=== PATIENT | male | born 1990 | race Caucasian/White ===

== ENCOUNTER 2017-09-10 22:18 | Emergency (ER) | payer OTHER ==
[2017-09-10 22:31] VITALS: BP 150/93; PULSE 59; RESP 18; TEMP 97.9; O2SAT 97
[2017-09-10] MEDS ORDERED: OXYCODONE/APAP 5/325 TAB PO ONE (22:57)
--- NOTE | 2017-09-10 22:57 | EDPHY ---
General - History Smoking Status: Never smoked Time Seen by Provider: 09/10/17 22:29 Narrative: PHYSICIAN DOCUMENTATION: The patient was evaluated and managed by the Physician Analog Device Designer. My co- signature indicates that I have reviewed this chart and I agree with the findings and plan of care as documented. I am the secondary supervising physician. (Patria Garcia) CHIEF COMPLAINT: Crush injury, hand pain, arm pain, shoulder pain HISTORY OF PRESENT ILLNESS: Patient Complains of right arm pain after injury. While at work, he reports his right arm being struck by a backhoe bucket. This happened within 2 hours of arrival to ED. He reports that the bucket "pinned my arm for half a second." He complains of moderate right shoulder pain, mild right forearm pain, moderate right hand pain. Some tingling. No numbness. No weakness. All areas are worse with movement and palpation. Minimal improvement with rest. No puncture wounds, but he does have a small abrasion to the back of his forearm. He is right hand dominant. No head strike or any injury elsewhere. No other associated complaints. REVIEW OF SYSTEMS: Ten systems reviewed and are negative unless otherwise noted in the HPI PCP: None SPECIALISTS: None PAST MEDICAL HISTORY: Denies any medical history PAST SURGICAL HISTORY: Denies any surgical history FAMILY HISTORY: non-contributory EXAMINATION General Appearance: Alert, no distress Head: normocephalic, atraumatic Eyes: Pupils equal and round, no conjunctival pallor or injection Neck: Normal inspection, supple, non-tender Respiratory: Lungs are clear to auscultation. No wheezing rhonchi or crackles Cardiovascular: Regular rate and rhythm. No murmur. Symmetric radial pulses 2 +. Excellent cap refill in the right hand. Back: non-tender, no bony abnormalities. No crepitus, step-off or deformity. Neurological: A&O, nonfocal, normal gait. Sensory is symmetric to the back of both hands, palmar surfaces of both hands. Excellent strength of the interossei symmetrically. No wrist drop on the right hand. Skin: Warm and dry, no rash. Superficial abrasion to the right posterior forearm. Superficial abrasion to the right hand dorsum. No laceration. Mild ecchymosis to the right hand dorsally Extremities: Significant tenderness to the dorsum of the right hand. No deformity. No tenderness in the anatomic snuffbox of the right wrist. No tenderness of the right elbow. There is mild tenderness of the right shoulder with hypertension, step-off or deformity. Range of motion is symmetric in the shoulders. Neurovascular intact distally with reported paresthesia but no focal findings. Psychiatric: Mood and affect normal DIFFERENTIAL DIAGNOSES: Including but not limited to sprain, strain, fracture, dislocation, contusion, compartment syndrome, rhabdomyolysis MDM: 10:50 p.m. Blunt trauma to the right upper extremity. There is a brief crush injury to the right arm less than 1 sec. There is no evidence of compartment syndrome. Range of motion is intact and symmetric to the left upper extremity. There is mild swelling and superficial abrasions. X-ray of the extremity was ordered prior to my examination. These are pending at this time. He is in no acute distress. 11:15 p.m. x-rays of the right upper extremity reveal only a mildly displaced oblique fracture of the mid to distal diaphysis of the 4th metacarpal. 11:30 p.m. I have re-evaluated the patient and placed a splint myself. This is an ulnar gutter. He is neurovascular intact pre and postprocedure. We discussed wound care for this. I also placed him in a shoulder sling. We discussed removing this at night and multiple times daily for range of motion. He is to be nonweightbearing of the right hand until seen by Orthopedics and/or hand surgeon for definitive care. He will need to contact his worker's compensation [facility] for further care. We discussed ED precautions for worsening pain, swelling, numbness of the upper extremity, cold sensation of the upper extremity , cyanosis or pallor. At this point stable for discharge home. PROCEDURE: Splint placement Consent: Verbal Type: Ulnar gutter Indication: metacarpal fracture Location: Right upper extremity Procedure: Right upper extremity ulnar gutter was place with 4 in ortho glass, cotton pre wrap into 4 in Jose Alberto wraps. This was done in common fashion with some extremities and extension of the wrist. Tolerated well with neurovascular status intact postprocedure. This procedure was by me solely SUPERVISION: This patient was independently evaluated without direct involvement of or examination by the attending physician. (Serge Espinal) - Objective Vital Signs: Initial Vital Signs Temperature (C) 97.9 F 09/10/17 22:28 Heart Rate 59 L 09/10/17 22:28 Respiratory Rate 18 09/10/17 22:28 Blood Pressure 150/93 H 09/10/17 22:28 O2 Sat (%) 97 09/10/17 22:28 O2 Delivery Mode Room Air Allergies/Adverse Reactions: No Known Allergies Allergy (Unverified 09/10/17 22:31) Home Medications: Medication Instructions Recorded oxyCODONE HCL/ACETAMINOPHEN 1 each PO Q4-6PRN PRN #7 tablet 09/10/17 [Percocet 5-325 mg Tablet] Medications Given: Discontinued Medications Oxycodone/Acetaminophen (Percocet 5/325mg Prepack#4) 1 btl TAKEHOME EDNOW ONE Stop: 09/10/17 23:25 Last Admin: 09/11/17 00:09 Dose: 1 btl Departure - Departure Disposition: Home, Routine, Self-Care Clinical Impression: Fracture of fourth metacarpal bone of right hand Qualifiers: Encounter type: initial encounter Fracture type: closed Metacarpal location: shaft Fracture alignment: displaced Qualified Code(s): S62.324A - Displaced fracture of shaft of fourth metacarpal bone, right hand, initial encounter for closed fracture Crush injury arm Qualifiers: Encounter type: initial encounter Laterality: right Qualified Code(s): S47.1XXA - Crushing injury of right shoulder and upper arm, initial encounter Sprain of shoulder, right Qualifiers: Encounter type: initial encounter Shoulder sprain type: unspecified sprain Qualified Code(s): S43.401A - Unspecified sprain of right shoulder joint, initial encounter Condition: Good Instructions: Oxycodone/Acetaminophen (By mouth), Hand Fracture (ED), Shoulder Sprain (ED) Additional Instructions: 1. medication as prescribed as needed 2. toll test worker's compensation [facility] for follow-up care 3. ED precautions as discussed for worsening pain, swelling, numbness, tingling , cold sensation, changes in color or tense scan 4. Follow up with hand specialist for definitive care of the right hand fracture 5. Follow up with orthopedist for definitive care of the right shoulder pain Referrals: Marco Antonio Dillon MD [Medical Doctor] - As per Instructions Elysia Zepeda MD [Medical Doctor] - As per Instructions Stand Alone Forms: Work Limited Duty Prescriptions: oxyCODONE HCL/ACETAMINOPHEN [Percocet 5-325 mg Tablet] 1 each PO Q4-6PRN PRN #7 tablet PRN Reason: Pain, Breakthrough
[2017-09-10] MEDS ORDERED: OXYCODONE/APAP 5/325MG PREPACK#4 BTL TAKEHOME ONE (23:24)
== END 2017-09-11 00:45 | disposition home or self-care (01) ==
PROC: 2W3EX1Z Immobilization of Right Hand using Splint (ICD-10-PCS; principal; 2017-09-10)
DX: S62.324A Displaced fracture of shaft of fourth metacarpal bone, right hand, initial encounter for closed fracture (principal); S43.401A Unspecified sprain of right shoulder joint, initial encounter; S47.1XXA Crushing injury of right shoulder and upper arm, initial encounter; W22.8XXA Striking against or struck by other objects, initial encounter; Y92.69 Other specified industrial and construction area as the place of occurrence of the external cause; Y99.0 Civilian activity done for income or pay; Y93.89 Activity, other specified